=== PATIENT | male | born 1960 | race African-American/Black ===

== ENCOUNTER 2017-08-14 11:06 | Inpatient (IN) | payer SELFPAY ==
[2017-08-14 12:01] LABS: ADD MAN DIFF? NO
[2017-08-14 12:05] LABS: BASO % 1 % (0-3); EOS # 0.2 x10^3/uL (0.0-0.7); EOS % 4 % (0-3); HEMATOCRIT 47.8 % (39.0-53.0); LYMPH # 2.3 x10^3/uL (1.0-4.8); LYMPH % 51 % (24-48); MEAN CORPUSCULAR HEMOGLOBIN 29 pg (25-35); MEAN CORPUSCULAR HGB CONC 34 g/dL (31-37); MEAN CORPUSCULAR VOLUME 86 fL (79-100); MONO # 0.3 x10^3/uL (0.0-1.1); MONO % 7 % (0-9); NEUT # 1.7 x10^3uL (1.8-7.7); NEUT % 38 % (31-73); PLATELET COUNT 201 x10^3/uL (140-400); RED BLOOD COUNT 5.58 x10^6/uL (4.30-5.70); RED CELL DISTRIBUTION WIDTH 14.1 % (11.5-14.5); WHITE BLOOD COUNT 4.5 x10^3/uL (4.0-11.0)
[2017-08-14 12:09] LABS: BILIRUBIN,URINE NEGATIVE (NEG); CLARITY,URINE CLEAR; COLOR,URINE YELLOW; GLUCOSE,URINE NEGATIVE (NEG); NITRITE,URINE NEGATIVE (NEG); PROTEIN,URINE NEGATIVE (NEG-TRACE); UROBILINOGEN,URINE 0.2 mg/dL (0.2 mg/dL)
[2017-08-14 12:16] LABS: BARBITURATES NEG (NEG); BENZODIAZEPINES NEG (NEG); CANNABINOIDS NEG (NEG); COCAINE NEG (NEG); METHADONE NEG (NEG); OPIATES NEG (NEG); PHENCYCLIDINE NEG (NEG)
[2017-08-14 12:18] LABS: AMPHETAMINE/METHAMPHETAMINE NEG (NEG); ANION GAP 7 (6-14); BLOOD UREA NITROGEN 16 mg/dL (8-26); BUN/CREATININE RATIO 12 (6-20); CALCIUM 9.3 mg/dL (8.5-10.1); CARBON DIOXIDE 30 mmol/L (21-32); CHLORIDE 104 mmol/L (98-107); CREATININE 1.3 mg/dL (0.7-1.3); ETHANOL, URINE NEG (NEG); GFR 69.1; GLUCOSE 89 mg/dL (70-99); PARTIAL THROMBOPLASTIN TIME 29 SEC (24-38); POTASSIUM 3.8 mmol/L (3.5-5.1); PROTHROMBIN TIME PATIENT 12.8 SEC (11.7-14.0); SODIUM 141 mmol/L (136-145)
[2017-08-14 12:18] LABS: ETHANOL < 10 mg/dL (0-10)
[2017-08-14 12:23] LABS: ALBUMIN 4.2 g/dL (3.4-5.0); ALBUMIN/GLOBULIN RATIO 1.3 (1.0-1.7); ALK PHOS 63 U/L (46-116); ALT (SGPT) 28 U/L (16-63); AST (SGOT) 16 U/L (15-37); TOTAL BILIRUBIN 0.2 mg/dL (0.2-1.0); TOTAL PROTEIN 7.4 g/dL (6.4-8.2)
[2017-08-14 12:31] LABS: TROPONINI < 0.017 ng/mL (0.000-0.055)
[2017-08-14 12:38] LABS: BACTERIA,URINE 0 /HPF (0-FEW); RBC,URINE 0 /HPF (0-2); SQUAMOUS EPITHELIAL CELL,UR FEW /LPF; WBC,URINE 0 /HPF (0-4)
[2017-08-14] MEDS: fentaNYL PF VIAL 100 MCG/2 ML VIAL IV ×2 (12:39→14:19)
[2017-08-14] MEDS: IOHEXOL 300 MG/ML 100ML VIAL. IV (13:15)
[2017-08-14] MEDS ORDERED: CONTRAST GIVEN MC (13:15)
[2017-08-14] MEDS ORDERED: ONDANSETRON PF 4 MG/2 ML VIAL. IV (13:45)
[2017-08-14] MEDS ORDERED: MORPHINE SULFATE 4 MG/ML DISP.SYRIN. IV (13:45)
[2017-08-14] MEDS: GADOBUTROL 7.5 MMOL/7.5 ML VIAL IV (13:56)
[2017-08-14] MEDS: TOPIRAMATE 25 MG TABLET. PO ×2 (16:46→21:22)
[2017-08-15 02:15] LABS: MRSA BY PCR Negative (Negative)
[2017-08-15 05:12] LABS: ADD MAN DIFF? NO
[2017-08-15] MEDS: ACETAMINOPHEN 325 MG TABLET. PO ×2 (05:25→14:28)
[2017-08-15 05:38] LABS: BASO # 0.1 x10^3/uL (0.0-0.2); BASO % 1 % (0-3); EOS # 0.2 x10^3/uL (0.0-0.7); EOS % 5 % (0-3); HEMOGLOBIN 15.8 g/dL (13.0-17.5); LYMPH # 2.3 x10^3/uL (1.0-4.8); LYMPH % 50 % (24-48); MEAN CORPUSCULAR HEMOGLOBIN 29 pg (25-35); MEAN CORPUSCULAR HGB CONC 34 g/dL (31-37); MEAN CORPUSCULAR VOLUME 86 fL (79-100); MONO # 0.3 x10^3/uL (0.0-1.1); MONO % 7 % (0-9); NEUT # 1.8 x10^3uL (1.8-7.7); NEUT % 37 % (31-73); PLATELET COUNT 194 x10^3/uL (140-400); RED BLOOD COUNT 5.47 x10^6/uL (4.30-5.70); RED CELL DISTRIBUTION WIDTH 14.1 % (11.5-14.5); WHITE BLOOD COUNT 4.7 x10^3/uL (4.0-11.0)
[2017-08-15 05:41] LABS: ANION GAP 10 (6-14); BLOOD UREA NITROGEN 16 mg/dL (8-26); CALCIUM 9.2 mg/dL (8.5-10.1); CARBON DIOXIDE 24 mmol/L (21-32); CHLORIDE 104 mmol/L (98-107); CREATININE 1.2 mg/dL (0.7-1.3); GFR 75.8; GLUCOSE 101 mg/dL (70-99); SODIUM 138 mmol/L (136-145)
[2017-08-15 07:25] LABS: POC GLUCOSE 105 mg/dL (70-99)
[2017-08-15] MEDS ORDERED: ONDANSETRON PF 4 MG/2 ML VIAL. IV (08:30)
[2017-08-15] MEDS: TOPIRAMATE 25 MG TABLET. PO (08:46)
[2017-08-15] MEDS: HYDROcodone/APAP 7.5/325MG 1 TAB TABLET PO (08:46)
[2017-08-15 10:03] LABS: PLT ESTIMATE ADEQUATE (ADEQUATE)
[2017-08-15] MEDS: FLU VACC QS2017-18 (36MOS+)/PF 0.5 ML SYRINGE. VAX IM (11:53)
[2017-08-15] MEDS: PNEUMOC CONJ VACC 23-VALENT 0.5 ML VIAL. VAX IM (11:55)
== END 2017-08-15 16:45 | disposition home or self-care (01) | DRG 93 ==
LOC: ER 11:06 → 1 WEST ICU 12:40 → 4 NORTH 17:32
DX: D18.02 Hemangioma of intracranial structures (principal); F17.210 Nicotine dependence, cigarettes, uncomplicated; R27.0 Ataxia, unspecified; Z79.82 Long term (current) use of aspirin; Z71.6 Tobacco abuse counseling; Z82.49 Family history of ischemic heart disease and other diseases of the circulatory system
CPT/HCPCS: 36415; 70450; 70496; 70498; 70553; 80048; 80053; 80307; 81001; 82962; 84484; 85025; 85610; 85730; 87641; 90686; 90732; 93005; 96374; 96375; 96376; 99285; 99285-25; A9585; G0480; J3010; Q9967